=== PATIENT | female | born 1950 | race African-American/Black ===

== ENCOUNTER → 2018-01-31 | Outpatient (CLI) | payer OTHER ==
[~2018-01-31] VITALS: Ht 152.4 cm; Wt 61.2 kg
[~2018-01-31] MED LIST: NORVASC5 MG PO
--- NOTE | ~2018-01-31 | PATH ---
[facility] [place] [address] PATHOLOGY RPT PROCEDURE Name: ANALISA NEW Room #: REG [facility].#: [id number] Admission: 01/31/18 Date of : 54 Discharge: Report #: [id number] Path Case #: [id number] [facility] Accession Number: [id number] . 01 Material submitted: . BX OF POLYP AT SIGMOID COLON X3 . 01 Clinical history: . Screening Colon Polyps . 02 Diagnosis: Polyps x 3, sigmoid colon, endoscopic biopsy: - All fragments showing hyperplastic polyp. - Negative for dysplasia. (IUV:siddharth; 02/01/2018) QMS/02/01/2018 . 02 Electronically signed: . Mandi Rubio MD, Pathologist NPI- [id number] . 01 Gross description: . The specimen is received in formalin, labeled " Analisa New and BX of polyp at sigmoid colon X3", are three salas soft tissues measuring 1.0 x 0.5 x 0.2 cm in aggregate, entirely submitted in A1. (SWS; 01/31/2018) SHS/SHS . 02 CPT . [id number] Performed at: [address], [place] [id number] MD Peter Schroeder MD Phone: [phone] Performed at: [address] [id number] MD Mandi Rubio MD Phone: [phone]
--- NOTE | ~2018-01-31 | P ---
[facility] [place] [address] PROCEDURE REPORT Name: JACKI NEW Room #: REG [facility].#: [id number] Admission: 01/31/18 Attend Phys: Jaxon Coughlin Discharge: Date of : 54 Report #: [id number] THIS REPORT FOR: //name// CC: Jaxon Garica FAM unknown Donavon Daniels MD DATE OF SERVICE: 01/31/2018 PROCEDURE PERFORMED: Colonoscopy with biopsies. HISTORY OF PRESENT ILLNESS: The patient is a 67-year-old female who presents today for routine screening colonoscopy. She denies any symptoms. No family history of colon cancer. DESCRIPTION OF PROCEDURE: The risks and benefits of the procedure were explained to the patient, those risks including but not limited to bleeding, perforation and the risk of sedation. She understood these risks and gave informed consent. Sedation was given using propofol per anesthesia. Next, a digital rectal exam was initially performed, which was normal. Next, using a standard Olympus colonoscope, the scope was placed in the patient's anus and advanced under direct vision to the cecum. The overall prep was excellent. The cecum and ileocecal valve were normal in appearance. Ascending, transverse, and descending colon were all normal. A 3-4 mm sessile polyps were noted in the sigmoid colon, all removed by cold forceps. The rectal mucosa was normal. On retroflexion, no abnormalities were noted. The scope was then withdrawn and the procedure terminated. The patient tolerated the procedure well. IMPRESSION: 1. Three small sigmoid colon polyps. 2. Otherwise, normal colonoscopy. RECOMMENDATIONS: 1. Await biopsy results. 2. If polyps are hyperplastic, repeat in 10 years; if adenomatous polyp, repeat in 5 years. Thank you for allowing me to participate in her care. By: [id number] Jaxon Garcia MD /nt
== END | disposition home or self-care (01) ==
LOC: GI 09:18
DX: Z12.11 Encounter for screening for malignant neoplasm of colon (principal); K63.5 Polyp of colon; I10 Essential (primary) hypertension; G47.33 Obstructive sleep apnea (adult) (pediatric); J43.9 Emphysema, unspecified; F17.210 Nicotine dependence, cigarettes, uncomplicated; Z98.51 Tubal ligation status; Z98.890 Other specified postprocedural states; Z91.040 Latex allergy status; Z88.8 Allergy status to other drugs, medicaments and biological substances; Z79.899 Other long term (current) drug therapy

== ENCOUNTER → 2019-05-02 | Outpatient (CLI) | payer OTHER | LOC: RAD 15:16 | DX: Z12.31 Encounter for screening mammogram for malignant neoplasm of breast (principal) ==